=== PATIENT | male | born 1995 | race Caucasian/White ===

== ENCOUNTER 2022-07-12 09:59 | Emergency (ER) | payer OTHER ==
[~2022-07-12] VITALS: Ht 188 cm; Wt 108.9 kg
== END 2022-07-12 11:25 | disposition home or self-care (01) ==
LOC: ED 09:59
DX: T18.128A Food in esophagus causing other injury, initial encounter (principal); I10 Essential (primary) hypertension; E78.00 Pure hypercholesterolemia, unspecified
CPT/HCPCS: 70360; 99283-25

== ENCOUNTER 2023-09-05 08:47 | Inpatient (IN) | payer OTHER ==
[~2023-09-05] VITALS: Ht 188 cm; Wt 107.5 kg
[2023-09-05] VITALS (12 sets, daily range): BP systolic 77–153; BP diastolic 55–122
[2023-09-05] MEDS ORDERED: LISINOPRIL10 MG PO (09:00)
[2023-09-05] MEDS ORDERED: GEMFIBROZIL600 MG PO (09:01)
[2023-09-05 09:24] LABS: HEMATOCRIT 55.3 % (35.0-50.0); HEMOGLOBIN 19.1 g/dL (12.0-18.0); MCH 32.7 (27-36); MCHC 34.5 g/dl (30-36); MCV 94.8 fl (81-99); PLATELET COUNT 432 K/uL (140-440); RBC 5.84 M/ul (4.3-5.7); RDW 13.6 (10.5-15.0)
[2023-09-05 09:37] LABS: ALBUMIN 4.3 g/dL (3.4-5.0); ALBUMIN/GLOBULIN RATIO 0.96 (1.1-2.4); ALKALINE PHOSPHATASE 111 U/L (46-116); ALT (SGPT) 321 U/L (14-59); ANION GAP 28.5 (7-21); AST (SGOT) 201 U/L (15-37); BILIRUBIN, TOTAL 0.9 ng/dL (0.2-1.0); BUN/CREATININE RATIO 10.08 (6.0-28.6); CALCIUM 8.9 mg/dL (8.5-10.1); CARBON DIOXIDE 17 mmol/L (21-32); CHLORIDE 97 mmol/L (98-107); CREATININE, SERUM 1.19 mg/dL (0.70-1.30); GLOMERULAR FILTRATION RATE,EST 84 mL/min (>60); MAGNESIUM 1.2 mg/dL (1.8-2.4); POTASSIUM 3.5 mmol/L (3.5-5.1); PROTEIN, TOTAL 8.8 g/dL (6.4-8.2); UREA NITROGEN 12 mg/dL (7-18)
[2023-09-05 09:50] LABS: BANDS, MANUAL DIFF 15; EOSINOPHILS, MANUAL DIFF 1; LYMPHOCYTES, MANUAL DIFF 9; MONOCYTES, MANUAL DIFF 5; NEUTROPHILS, MANUAL DIFF 70
[2023-09-05 09:51] LABS: BASOPHILS, MANUAL DIFF 0
[2023-09-05 11:06] LABS: BILIRUBIN, URINE NEGATIVE (negative); BLOOD/HGB, URINE TRACE-I (Negative); KETONE, URINE NEGATIVE (Negative); LEUK ESTERASE, URINE NEGATIVE (negative); NITRITE, URINE NEGATIVE (negative); PH, URINE 6.5 (5-7)
[2023-09-05 11:13] LABS: BACTERIA, URINE RARE /hpf (negative); CASTS, URINE NONE SEEN \\lpf; COLLECTION TYPE, URINE CLEAN CATCH; CRYSTALS, URINE NONE SEEN (0-1+); EPITHELIAL CELLS, URINE SQUAMOUS 1+ /lpf (0-1+); REFLEX CULTURE, URINE No (No); WHITE BLOOD CELLS, URINE 0-1 /HPF (0-5)
[2023-09-05 11:19] LABS: AMPHETAMINES, URINE NEGATIVE (NEGATIVE); BARBITURATES, URINE NEGATIVE (NEGATIVE); BENZODIAZEPINE, URINE NEGATIVE (NEGATIVE); BUPRENORPHINE, URINE NEGATIVE (NEGATIVE); CANNABINOID, URINE POSITIVE (NEGATIVE); COCAINE, URINE NEGATIVE (NEGATIVE); ECSTASY, URINE NEGATIVE (NEGATIVE); FENTANYL, URINE NEGATIVE (NEGATIVE); METHADONE, URINE NEGATIVE (NEGATIVE); OPIATES, URINE POSITIVE (NEGATIVE); OXYCODONE, URINE NEGATIVE (NEGATIVE); PHENCYCLIDINE, URINE NEGATIVE (NEGATIVE)
--- NOTE | 2023-09-05 12:30 | NUR ---
28 YEAR OLD MALE PATIENT ADMITTED TO CCU UNDER DR. CHANG VIA BOB WITH DX OF PANCREATITIS. PATIENT STATES HE STARTED HAVING NAUSEA, VOMITING AND ABD PAIN EARLY THIS AM AT APPROX 0300. HAIR DRINKS WISKEY APPROX 4-5 TIMES AND WEEK WITH INCREASE ALCOHOL INTAKE ON THE WEEKENDS. UPON ADMIT TO CCU PATEINT IS AWAKE, ALERT, ORIENTED, COOPERATIVE. C/O MID DIFUSE ABD PAIN 8/10. DILAUDID 0.5 MG IV GIVEN. IS VERY DIAPHORTIC. COOL AND CLAMMY.
[2023-09-05 12:42] LABS: CHOLESTEROL 363 mg/dL (<200); CHOLESTEROL/HDL RATIO 9.6; HDL CHOLESTEROL 38 (40-60)
[2023-09-05 12:43] LABS: TRIGLYCERIDES 1060 ng/dL (<150)
--- NOTE | 2023-09-05 14:20 | NUR ---
CWIA SCALE DONE. VALUE-7. DR. COOL NOTIFIED OF THIS AND PATIENT PAIN OF 05/18/ ORDRS RECEIVED TO GIVE DILAUDID 1 MG IV Q 1 HR PRN SEVERE PAIN. DILAUDID 1 MG IV GIVEN PER ORDRES.
--- NOTE | 2023-09-05 15:24 | NUR ---
RESTING WITH HOB ELEVATED TO APPROX 45 DEGREE ANGLE. O2 INCREASED TO 3 L O2 SAT 90. EDUCATION ON I.S. GIVEN. USED I.S. TO 1500 ML. IVF INCREASED TO 999. WILL RECEIVED THIS BOLUS OVER 1/2 HR. REMAINS DIAPHORTIC.
--- NOTE | 2023-09-05 16:00 | NUR ---
ASSESSEMENT DONE. PATIENT STATES HE FEELS A LITTLE BETTER. IVF INFUSING AT 200 ML/HR. RECEIVED BOLUS OF LR AT 500 ML OVER 1/2.
--- NOTE | 2023-09-05 16:10 | NUR ---
C/O ABD PAIN, DILAUDID 1 MG IV GIVEN FOR PAIN.
--- NOTE | 2023-09-05 16:20 | NUR ---
, DR. CHANG NOTIFIED. ORDERS RECEIVED TO PLACE MURILLO CATH.
--- NOTE | 2023-09-05 16:58 | NUR ---
MURILLO CATH PLACED WITH RETURN OF 7 ML OF HERMAN URINE.
--- NOTE | 2023-09-05 17:00 | NUR ---
Amos KIMBLE HERE TO PLACE PICC LINE.
[2023-09-05 17:17] LABS: HEMOGLOBIN 17.9 g/dL (12.0-18.0)
[2023-09-05 17:20] LABS: HEMATOCRIT 54.7 % (35.0-50.0); MCH 32.5 (27-36); MCHC 32.7 g/dl (30-36); MCV 99.3 fl (81-99); PLATELET COUNT 288 K/uL (140-440); RBC 5.51 M/ul (4.3-5.7); RDW 14.4 (10.5-15.0)
[2023-09-05 17:31] LABS: ALBUMIN 3.1 g/dL (3.4-5.0); ALBUMIN/GLOBULIN RATIO 0.89 (1.1-2.4); ANION GAP 25.3 (7-21); BILIRUBIN, TOTAL 1.1 ng/dL (0.2-1.0); BUN/CREATININE RATIO 6.27 (6.0-28.6); CALCIUM 7.5 mg/dL (8.5-10.1); CREATININE, SERUM 2.23 mg/dL (0.70-1.30); POTASSIUM 4.3 mmol/L (3.5-5.1); PROTEIN, TOTAL 6.6 g/dL (6.4-8.2)
[2023-09-05 17:38] LABS: BANDS, MANUAL DIFF 24; LYMPHOCYTES, MANUAL DIFF 9; MONOCYTES, MANUAL DIFF 4; NEUTROPHILS, MANUAL DIFF 63
--- NOTE | 2023-09-05 18:10 | NUR ---
PATIENT TOLERATED PICC WELL. REMAINS COLD AND CLAMMY. PATEINT STATES HE FEELS WARM. DR. CHANG HAS BEEN IN ROOM SEVERAL TIMES TO SEE PATIENT.
--- NOTE | 2023-09-05 19:21 | NUR ---
PICC INSERTION NOTE: ASKED BY DR. SERRANO TO EVALUATE PATIENT FOR POTENTIAL PICC PLACEMENT. PT IS IN CCU FOR ACUTE PANCREATITIS. PATIENT IS IN NEED OF BETTER IV ACCESS FOR MULTIPLE MEDICATIONS DUE TO ACUTE ILLNESS. AFTER REVIEWING THE CHART AND INTERVIEWING THE PATIENT, NO ABSOLUTE CONTRAINDICATIONS WERE IDENTIFIED. PATIENT WAS ABLE TO SIGN THE CONSENT FORM FOR A PICC. PATIENT'S RIGHT ARM WAS EVALUATED FIRST USING [employer]. THE BASILIC WAS IDENTIFIED FIRST, AND A SUITABLE CANDIDATE. IT WAS ESTIMATED THAT A 4FR CATHETER WOULD TAKE UP ONLY 37% OF VEIN DIAMETER. SKIN WAS PREPPED FOLLOWING CDC RECOMMENDATIONS FOR STERILE PROCEDURE. IV ACCESS WAS THEN OBTAINED EASILY ON THE FIRST ATTEMPT AND DARK, NON PULSATILE BLOOD WAS RETURNED. GUIDEWIRE WAS THEN INSERTED EASILY WITHOUT RESISTANCE. PICC WAS THEN ADVANCED THROUGH THE INTRODUCER WITHOUT DIFFICUTLY. SHERLOCK 3CG WAS UTILIZED TO WATCH TIP, BUT THIS WAS NOT SHOWING PICC WHERE IT SHOULD TRAVEL DOWN TO. AFTER MULTIPLE ATTEMPTS AT ADVANCING, PICC DRESSING WAS PLACED AND A CHEST XRAY WAS TAKEN. FIRST XRAY SHOWED THE PICC TO BE CROSSING OVER CENTRAL VASCULATURE TO THE LEFT. PICC WAS THEN READVANCED USING STERILE PROCEDURE AND A CHEST XRAY TAKEN. THIS TIME THE PICC SHOWED TO BE TRAVELING UP THE NECK. PICC WAS AGAIN READVANCED UNDER STERILE PROCEDURE AND WHILE FLUSHING PICC AT THE SAME TIME. CHEST XRAY THEN SHOWED PICC TO BE IN CENTRAL VASCULATURE BUT WAS UNABLE TO ADVANCE ANY FURTHER, LEAVING 8 CM EXPOSED. STERILE DRESSING AGAIN REAPPLIED. FINAL CHEST XRAY SHOWS PICC TIP TO BE IN MID/DISTAL RIGHT SUBCLAVIAN VEIN. DISCUSSED WITH DR. SERRANO HOW THIS IS NOT IDEAL PLACEMENT, AND THAT A PICC EXCHANGE COULD POTENTIALLY BE UNDERTAKEN AT A LATER TIME. PICC DOES NOT PULL BACK BLOOD AT THIS TIME, BUT DID WHEN ADVANCING PICC THE LAST TIME. BLOOD PRESSURE IS ALSO LOW, AND PT IS ON NOREPI DRIP. DR. SERRANO GIVES APPROVAL FOR LINE TO BE USED.
--- NOTE | 2023-09-05 19:34 | NUR ---
REPORT TO NEXT SHIFT. LEVPHED GTT INFUSING AT 5 MCG/ MIN. INSULIN GTT AT 3.2 UNITS/HR. MURILLO IN PLACE WITH VERY POOR URINE OUTPUT. MD IS AWARE. CONTINUES ON LR AT 200 ML/HR.
--- NOTE | 2023-09-05 20:00 | NUR ---
SBAR REPORT RECEIVED FROM PRAKASH CORBIN AND PRAKASH ROCHA. ALL QUESTIONS AND CONCERNS WERE CLARIFIED WITH MD SERRANO IN DEPARTMENT. REGULAR LABS, CBG, AND MONITORING OF PATIENT WILL BE CONDUCTED AND COMPLETED THROUGHOUT THE NIGHT. LACTIC ACID WILL BE COMPLETED AT 2100 PATIENT MARTÍNEZ APPEARS CALM, COOPERATIVE, AND ENDORSES PAIN. 1MG IV DILAUIDID ADMINISTERED
--- NOTE | 2023-09-05 20:00 | NUR ---
PATIENT MARTÍNEZ NOTED TO BE ANXIOUS, DIAPHORETIC, TACHYCARDIC, TACHYPNEIC, AND ENDORSING 5/10 EPIGASTRIC PAIN. 1MG DILAUIDID IV PUSH ADMINISTERED, PORTABLE FAN PROVIDED, 2RN IN ROOM PROVIDING COMFORT AND DISTRACTION. ROUNDED WITH MD SERRANO AND DISCUSSED CONCERNS AND PLAN OF CARE. CONCERNS ADDRESSED INCLUDED PAIN, ANXIETY, TACHYCARDIA, ABNORMAL LABS, AND BLOOD PRESSURE. PLAN IS TO COLLECT SERIAL LABS, REDRAW LACTIC AND CMP AT 2100. BP MAINTAINED WITH NOREPINEPHRINE. PAIN ADDRESSED WITH PRN DILAUIDID.
--- NOTE | 2023-09-05 21:00 | NUR ---
O2 SENSOR CHANGED FROM NOSE TO FOREHEAD. O2 SATS NOW 96%. PATIENT CONTINUES TO BE DIAPHRETIC AND TACHYPNEIC. ALERT AND ORIENTED X 4, WATCHING TV. SLIGHT ANXIETY NOTED. 1MG OF DILAUIDID ADMINISTERED. MD SERRANO CONTACTED FOR ELEVATED LACTIC ACID. DISCUSSED TACHYPNEIA, TACHYCARDIA, ANXIETY, BLOOD PRESSURE AND REQUIREMENT NOREPHRINE REQUIREMENT. CHANGED IV FLUIDS FROM LR TO D5LR. RECTAL TEMP PROBE INSERTED
[2023-09-05 21:55] LABS: ALBUMIN 2.8 g/dL (3.4-5.0); ALBUMIN/GLOBULIN RATIO 0.76 (1.1-2.4); ANION GAP 22.8 (7-21); BILIRUBIN, TOTAL 1.1 ng/dL (0.2-1.0); BUN/CREATININE RATIO 7.08 (6.0-28.6); CALCIUM 7.1 mg/dL (8.5-10.1); CREATININE, SERUM 2.4 mg/dL (0.70-1.30); MAGNESIUM 2.9 mg/dL (1.8-2.4); POTASSIUM 4.8 mmol/L (3.5-5.1); PROTEIN, TOTAL 6.5 g/dL (6.4-8.2)
--- NOTE | 2023-09-06 | NUR ---
PATIENT MARTÍNEZ CONTINUES TO ENDORSE ANXIETY, TACHYCARDIA, TACHYPNEIA, AND POOR URINE OUTPUT NOTED. NOREPINEPHRINE TITRATED TO MAINTAIN A MAP OF 65 OR GREATER. RNS AT BEDSIDE PROVIDING COMFORT, REPOSITION, MEDICATION, AND REASSURANCE. Q1HR CBG CONTINUES TO BE COLLECTED. REPEAT LABS DUE AT 0100.
--- NOTE | 2023-09-06 01:17 | NUR ---
PATIENT UNINTENTIONALLY REMOVED 20G LAC DURING A MILD PANIC EPISODE. THIS RN INSERTED A 20G IV IN THE LEFT AC.
--- NOTE | 2023-09-06 02:00 | NUR ---
NOTIFIED MD SERRANO OF ABNORMAL LABS. DISCUSSED PATIENT'S CONDITION, ANXIETY, AND NEED TO INCREASE MEDICATIONS. NOREPINEPHRINE 10, CONTINUES TO ENDORSE ANXIETY, 3CC URINE WITH 84CC BLADDER SCAN, SLUGGISH PUPILS, POOR MENTATION. PATIENT BECAME DIZZY AND UNCOORDINATED AFTER A BRIEF WALK TO BATHROOM. NOTED TO HAVE EYES ROLLING BACK IN HEAD. ABLE TO GET BACK TO BED WITH 3 RN'S INCLUDING DANIEL RN, CARLOS EDUARDO, RN, AND PRAKASH LINK . THIS RN REQUESTED THAT MD SERRANO COME AND LOOK AT THE PATIENT. 0300- MD SERRANO, DANIEL RN, CARLOS EDUARDO, RN, AND MANOLO FRAGOSO AT [facility]
--- NOTE | 2023-09-06 03:09 | NUR ---
PT REQUEST TO USE THE BATHROOM. PT VITALS STABLE. PT SAT UP TO SIDE OF BED WITHOUT INCIDENT. PT STOOD AT BEDSIDE WITHOUT INCIDENT. PT ASSIST TO BATHROOM WITHOUT INCIDENT. PT UNABLE TO HAVE BM. PT WALKED TO SINK AND WASHED HANDS WITHOUT INCIDENT. PT BEGAN WALKING TOWARD RN AT BATHROOM DOOR. PT THEN BEGAN TO STAGGER. PT PALE, PT NOT FOLLOWING COMMANDS. PT ASSISTED TO COMMODE TO SIT BY RN. TWO ADDITIONAL RN'S ASSISTED. WHEELCHAIR BROUGHT TO TRANSFER PT FROM COMMODE TO BED. REPEATED COMMANDS REQUIRED BEFORE PT FOLLOWED. PT TRANSFERRED TO BED. PT STATED HE THOUGHT HE MIGHT PASS OUT WHILE LAYING IN BED. PT ABLE TO ANSWER ORIENTATION QUESTIONS CORRECTLY. PT PUPILS SLUGGINSH. MD AND SECURITY ADMINISTRATOR NOTIFIED.
--- NOTE | 2023-09-06 03:25 | NUR ---
PATIENT MAURICIO CONTINUES TO BE TACHYPNEIC(44) AND TACHYCARDIC 125-145. DIAPHORETIC, PERSISTENT ANXIETY, MOTTLED AND COOL EXTREMETIES, INDWELLING MURILLO CATHETER PRESENT WITH 10CC URINE PRODUCED. MD SERRANO NOTIFIED.
--- NOTE | 2023-09-06 03:31 | NUR ---
PT COMPLAINT THROUGHOUT SHIFT OF NOT BEING ABLE TO BREATH. PT O2 >92 ON 4L NC. PT REASSURED O2 IS WHERE IT NEEDS TO BE. PT CONTINUES TO STATE HE IS UNABLE TO BREATHE. DR. SERRANO AWARE. CHECT XRAY ORDERED AND COMPLETED. DR SERRANO ON UNIT.
--- NOTE | 2023-09-06 03:45 | NUR ---
0345- PATIENT MAURICIO IS NOTED TO BE DIAPHORETIC, TREMULOUS, MENTATION CHANGE, UNABLE TO ANSWER QUESTIONS, SLUGGISH PUPILS, POSTURING. CARLOS EDUARDO VILLAVICENCIO, RN, FOUZIA, MANOLO, AND PRAKASH LITTLE. RAPID RESPONSE AND CODE BLUE CALLED VERY QUICKLY AFTERWARDS. PATIENT AT 043. PLEASE SEE CODE DOCUMENTATION
[2023-09-06 03:50] LABS: ALBUMIN 2.5 g/dL (3.4-5.0); ALBUMIN/GLOBULIN RATIO 0.74 (1.1-2.4); ANION GAP 22.1 (7-21); BILIRUBIN, TOTAL 0.8 ng/dL (0.2-1.0); BUN/CREATININE RATIO 6.36 (6.0-28.6); CALCIUM 6.7 mg/dL (8.5-10.1); CREATININE, SERUM 3.3 mg/dL (0.70-1.30); MAGNESIUM 2.8 mg/dL (1.8-2.4); POTASSIUM 4.1 mmol/L (3.5-5.1); PROTEIN, TOTAL 5.9 g/dL (6.4-8.2)
--- NOTE | 2023-09-06 05:27 | NUR ---
03:29 - THIS RN IN PT ROOM FOR NEW NOREPINEPHRINE BAG ADMINISTRATION PER EMAR. PT COMPLAINT THAT HE DIDN'T FEEL WELL. WHEN ASKED SPECIFICALLY PT STATES "I DON'T KNOW I JUST DON'T FEEL LIKE I CAN BREATHE." PT O2 >92% ON 4LNC. PT TACHYPNEIC. PT COACHED TO TAKE SLOW DEEP BREATHS. PT ATTEMPTED TO FOLLOW INSTRUCTION. PT REMAINED TACHYPNEIC. PT ALERT AND COMMUNICATIVE. PT ABLE TO ANSWER ALL ORIENTATION COMMANDS. 03:45 - PT ANSWERS DELAYED. PT NOT ANSWERING QUESTIONS. NO CHANGE IN VITALS PER CONTINUOUS MONITOR. PRIMARY RN AND MD SERRANO BOTH ON UNIT CALLED INTO ROOM FOR ASSESSMENT. PT NOT RESPONDING TO NAME. PT NOT TRACKING. PT BEGAN MINOR SHAKING OF EXTREMITIES. PT THEN APPEARED TO EXHIBIT SEIZURE LIKE ACTIVITY. POWDER CORE TESTER PRESENT IN ROOM NOW. 03:52 - RAPID RESPONSE CALLED. 03:53 - CODE BLUE CALLED. COMPRESSIONS AND ACLS INITIATED. SEE CODE CHARTING. 04:37 - TIME OF PRONOUNCED BY DR. SERRANO
--- NOTE | 2023-09-06 05:54 | NUR ---
PICC PRESENT, HOWEVER HEPARIN LOCKED. PATIENT CONTINUES TO ENDORSE ANXIETY AND PAIN. DILAUDID ADMINISTERED IN ADDITION TO OTHER INTERVENTIONS. INDWELLING MURILLO PRESENT. 3CC OF URINE COLLECTED SINCE 2099. MD SERRANO NOTIFIED. WARM PAD PROVIDED TO PLACE ON EPIGASTRIC AREA. PATIENT MAURICIO IS SATISFIED WITH NON-INVASIVE INTERVENTION.
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
--- NOTE | 2023-09-06 13:16 | EKG ---
[facility] [address] [facility] [place] [address] Signed Sinus tachycardia Possible Inferior infarct (cited on or before 05-FEB-2023) Abnormal ECG When compared with ECG of 06-FEB-2023 01:45, Vent. rate has increased BY 52 BPM Questionable change in QRS duration Minimal criteria for Anterior infarct are no longer present Confirmed by GAURI SERRANO MD ([id number]) on 09/06/2023 1:16:15 PM Electronically Signed By: GAURI SERRANO 09/06/23 1316 PATIENT NAME: BRIANNA MARTÍNEZ Electrocardiogram DATE OF : [birth year] PHYSICIAN: GAURI SERRANO REPORT #: [id number] REPORT IS CONFIDENTIAL AND NOT TO BE RELEASED WITHOUT AUTHORIZATION
--- NOTE | 2023-09-06 13:59 | NUR ---
Spoke with family to follow up, awaiting to hear if they are requesting an autopsy.
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
== END 2023-09-06 04:37 | DRG 439 ==
LOC: ED 08:47 → CCU 11:19
PROVIDERS: Emergency Medicine; ADMIT Family Medicine; ATTEND Family Medicine
PROC: 05H633Z Insertion of Infusion Device into Left Subclavian Vein, Percutaneous Approach (ICD-10-PCS; 2023-09-05)
PROC: 0T9B70Z Drainage of Bladder with Drainage Device, Via Natural or Artificial Opening (ICD-10-PCS; principal; 2023-09-05 18:00)
PROC: 05H533Z Insertion of Infusion Device into Right Subclavian Vein, Percutaneous Approach (ICD-10-PCS; 2023-09-06)
PROC: 5A12012 Performance of Cardiac Output, Single, Manual (ICD-10-PCS; 2023-09-06)
DX: K85.80 Other acute pancreatitis without necrosis or infection (principal); E87.20 Acidosis, unspecified; F10.10 Alcohol abuse, uncomplicated; E83.42 Hypomagnesemia; K76.0 Fatty (change of) liver, not elsewhere classified; E78.1 Pure hyperglyceridemia; R00.0 Tachycardia, unspecified; D72.829 Elevated white blood cell count, unspecified; I46.9 Cardiac arrest, cause unspecified; E83.51 Hypocalcemia; I10 Essential (primary) hypertension; E78.00 Pure hypercholesterolemia, unspecified; Z79.899 Other long term (current) drug therapy; Z71.41 Alcohol abuse counseling and surveillance of alcoholic
CPT/HCPCS: 36415; 36569; 71045; 71275; 74174; 80053; 80061; 80307; 81001; 82803; 83605; 83690; 83735; 84484; 85025; 87040; 93005; 93010; 96361; 99285-25; C1751; C9113; J0171; J0696; J1170; J1815; J2060; J2405; J3475; J7030; J7121; Q9967